=== PATIENT | female | born 1970 | race Caucasian/White ===

== ENCOUNTER → 2024-01-15 09:54 | Outpatient (REF) | payer BC, SELFPAY | LOC: WDC 09:54 | PROVIDERS: ATTENDING PHYSICIAN Nurse Practitioner Family | DX: N63.10 Unspecified lump in the right breast, unspecified quadrant (principal); N63.13 Unspecified lump in the right breast, lower outer quadrant | CPT/HCPCS: 76642; 77062; 77066 ==

== ENCOUNTER 2024-05-14 14:51 | Emergency (ER) | payer BC, SELFPAY ==
[2024-05-14 14:53] VITALS: BP 113/68
--- NOTE | 2024-05-14 16:19 | ED.MUSCINJ ---
HPI-Injury
General
Chief Complaint: Musculo-Skeletal Complaint
Source: patient
Exam Limitations: none
Time Seen by Provider: 05/14/24 16:11
History of Present Illness-Injury
Is this injury a work related problem?: No
Is pt an associate of [facility]/[place]?: No
Initial Injury comments:
Hit top of foot against furniture. COmplains of pain to dorsum of foot below toes 2,3,4. Injury occurred just [employer].
Past History
Past History
ED Past Medical History: Other (Migraines, occasional UTI)
ED Past Surgical History: None
Social History
Tobacco: Non-smoker
Alcohol: Occasional
Drug: None
Personal:
Living: with family
Employment: Employed
Family History
Family History: Other (Noncontributory)
Musculoskeletal Injury Exam
Musculoskeletal Injury Exam
Left Dorsal Foot:
Pain with Movement?: Moderate
Tender to palpation?: Moderate
Soft tissue swelling?: None
External deformity and angulation?: None
Joint effusion?: None
Contusion?: Moderate
Hematoma-local bleeding into tissue?: None
Strain- Sprain- Tear (Connective tissue injury)?: None
Crepitus with movement?: No
Joint instability?: No
Malalignment/deformity?: No
Range of motion: Limited
Distal skin color and temperature: normal-warm & good color
Capillary Refill: normal
Normal distal neurovascular exam?: Yes
Peripheral Pulses: posterior tibial (left): 3+ and dorsalis pedis (left): 3+
Phy Exam
General Physical Exam
General Presentation: well appearing and no apparent distress
General age: appears stated age
General Skin: warm
Musculoskeletal Exam
Musculoskeletal Exam: neuro vasc intact
Skin Exam
Skin Exam: normal color, warm/dry and no rash
Psychiatric Exam
Psychiatric Exam: normal mood/affect
Injury Course
Orders/Labs/Results
Orders:
Orders
05/14/24 14:56
Foot, Left 3 View [CR Foot - Left Min 3 Views] Urgent
Comment:
Reason For Exam: injury
05/14/24 16:15
Ortho Boot Left- Treatment ONCE
Short or tall?: Short
Ibuprofen [Motrin] 600 mg PO NOW STA
*Radiology
Radiology exam reviewed: radiology read reviewed
*Pulse Oximetry
Patient hypoxic: no
*Critical Care Note
Total Time (30-74mins, 75-104mins- exclusive of procedures): Not Applicable
ED Attending Note
-
Portions of this chart may have been created with voice recognition software.� Occasional wrong word or��sound alike� substitutions may have occurred due to the inherent limitations of voice recognition software.
Discharge Plan
Departure
Patient Disposition: Home (Routine Discharge)
Date of Disposition: 05/14/24
Time of Disposition: 16:17
Patient with high blood pressure during this ER visit?: No
Condition: Good
Covid-19: Not Applicable
Discharge Problem:
Contusion of foot
Instructions: Contusion (DC), Ibuprofen, Using Cold for Pain
Prescriptions:
No Action
acetaminophen [Tylenol] 325 MG tablet
325 mg PO PRN PRN (Reason: headache)
Fioricet 50-300-40 mg Capsule
1 tab PO DAILY PRN (Reason: migraines)
oseltamivir 75 MG capsule
75 mg PO BID Qty: 9 0RF
nitrofurantoin monohyd/m-cryst [Macrobid] 100 mg capsule
100 mg PO Q12H 5 Days Qty: 10 0RF
prednisone 20 mg tablet
40 mg PO DAILY 5 Days Qty: 10 0RF
Referrals:
Marvin Traore MD [Active] - (Follow up if your symptoms do not improve over the next week.)
Interventions
Interventions:
*Risk Screen - Suicide Last Done: 05/14/24 14:56
*General Assessment Last Done: 05/14/24 16:43
*Neglect/Abuse Screening Last Done: 05/14/24 14:56
ED- Fall Risk Assessment Last Done: 05/14/24 16:43
*ED COVID-19 Vaccine History Last Done: 05/14/24 16:43
*Nursing Disposition Last Done: 05/14/24 16:43
ED-Musculoskeletal Assessment Last Done: 05/14/24 16:23
Discharge Date and Time
Discharge Date/Time: 05/14/24 16:45
Print Language: [id number]
[2024-05-14] MEDS: MOTRIN 600 MG PO (16:20)
== END 2024-05-14 16:45 | disposition home or self-care (01) ==
LOC: EMR 14:51
PROVIDERS: EMERGENCY PHYSICIAN Emergency Medicine; FAMILY PHYSICIAN Family Medicine
DX: S90.32XA Contusion of left foot, initial encounter (principal); W22.03XA Walked into furniture, initial encounter
CPT/HCPCS: 99283; 73630